=== PATIENT | female | born 1975 | race Caucasian/White ===

== ENCOUNTER → 2017-07-26 | Outpatient (CLI) | payer OTHER ==
[~2017-07-26] MED LIST: BACTRIM DS 8001 TA1 PO; CIPROFLOXACIN500 MG PO; HYDROCODONE1 TABLET PO; NOMEDS XX; PYRIDIUM200 M2 PO
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
== END ==
LOC: RAD 14:01
DX: M25.521 Pain in right elbow (principal)